=== PATIENT | female | born 1965 | race Two or more races ===

== ENCOUNTER 2023-03-20 05:44 | Day surgery (SDC) | payer OTHER ==
[~2023-03-20] VITALS: Ht 160 cm; Wt 60.8 kg
[~2023-03-20 05:44] MED LIST: TOPROL XL25 M1 PO
== END 2023-03-20 17:50 | disposition home or self-care (01) ==
LOC: CIR.AMB 05:44
PROVIDERS: ATTEND Student in an Organized Health Care Education/Training Program
DX: N93.8 Other specified abnormal uterine and vaginal bleeding (principal); Z20.822 Contact with and (suspected) exposure to COVID-19

== ENCOUNTER 2023-04-18 09:11 | Emergency (ER) | payer OTHER ==
[~2023-04-18] VITALS: Ht 160 cm; Wt 61.2 kg
== END 2023-04-18 12:25 | disposition home or self-care (01) ==
LOC: ER
DX: N76.0 Acute vaginitis (principal); B96.89 Other specified bacterial agents as the cause of diseases classified elsewhere; N39.0 Urinary tract infection, site not specified